=== PATIENT | female | born 1990 | race Caucasian/White ===

== ENCOUNTER → 2018-07-19 14:11 | Outpatient (CLI) | payer OTHER, SELFPAY ==
--- NOTE | 2018-07-19 14:14 | CT_ITS ---
STUDY: CT ABDOMEN AND PELVIS WITHOUT CONTRAST REASON FOR EXAM: Female, 28 years old. Microscopic hematuria flank pain for 7 months RADIATION DOSAGE (If Supplied By Facility): CTDIvol = ( 24.18 ) mGy, DLP = ( 1328.96 ) mGycm TECHNIQUE: Transaxial images were obtained from the dome of the diaphragm to the symphysis pubis without oral contrast, and without intravenous contrast. Sagittal and coronal images were reconstructed. Individualized dose optimization techniques were used for this CT. COMPARISON: None. FINDINGS: The visualized lung bases are unremarkable. The visualized portions of the heart are within normal limits. Normal liver. Normal gallbladder and extrahepatic biliary system. Normal spleen. Normal pancreas. Normal bilateral adrenal glands. Normal right kidney. Normal left kidney. There is a small hiatal hernia. Normal small intestine. There is mild to moderate stool in the colon. The appendix is visualized and appears normal. Normal abdominal aorta. Normal inferior vena cava. Normal retroperitoneum. Normal urinary bladder. Normal visualized uterus. There is prominent subcutaneous fat. There is a broad disc bulge at L5-S1. There is degenerative change at the SI joints. CT/Abdomen/Pelvis without Cont IMPRESSION: No visualize renal ureteral bladder calculi. [id number] constipation. No evidence of appendicitis. Electronically Signed: Nayeli Allen MD at 16:10 EDT Tel , Service support ,
== END ==
PROVIDERS: Family Provider Family Medicine; PCP Family Medicine; Visit Provider Family Medicine
DX: R31.21 Asymptomatic microscopic hematuria (principal)
CPT/HCPCS: 74176

== ENCOUNTER 2018-12-23 07:00 | Outpatient (RCR) | payer OTHER, SELFPAY ==
[2018-11-30 12:18] VITALS: BMI 56.5
--- NOTE | 2018-12-05 08:10 | HP.PTEVAL_ITS ---
Patient's Visit Information AMARI CANNON is a 28 year old F referred to Physical Therapy by Daysi Quigley MD with a diagnosis of Lumbar disc bulge, low back pain. Date of Evaluation: 12/05/18 Physical Therapist: Cristobal Talley DPT - Visit Plan Frequency: 2x /Week Duration: 4 Weeks Plan: Start with L sided side glide, off set press ups, prone lying over pillows + IFC. Once symptoms have started to reduce add in neutral core stability exercises. - Subjective Findings: Pt. is here today for her initial evaluation with diagnosis of LBP and disc bulging. Pt. reports having increased pain since attempting to lift a fan blade aligner over the weekend and felt intense pain in her back. Pt. was unable to straighten up. Pt. was ahving pain down her R leg, but not today. Pt. reports having 6/10 pain on the right side of lumbar spine. Pt. denies N/T, but did have some feeling of her R LE wanting to give out on her earlier this week, non since. Pt. reports improved sleeping over the past two nights. 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 Pt. is hopeful to reduce her symptoms in order to get back to all recreational and work actitiies without limitations. - Pain Lumbar spine Pain Intensity (Out of 10): 6 Pain Intensity Range: 3, 8 - Objective POSTURE: Pt. has a lateral R shift with L shoulder correction. Pt. has normal shoulder heights. Pt. is not able to correct without increase in symptoms. PALAPTION: Pt. has increased tenderness aloing lumbar paraspinals. Pt. has increased pain with spring testing of L3-L5. Pt. has normal SI joint allignment. NEURO: Pt. has normal senstaion throughout BLEs. Pt. has 2+ bilateral DTR of LEs. ROM: LUMBAR SPINE: flexion min loss increase nW, ext min/mod loss increase NW, SB R nil loss NE, SB L min loss increase NE,rotation nil loss bilat NE. Pt. has normal hip ROM bilatearlly no increase in symptoms. Pt. has tight HS bilat and tight hip flexors bilat. MMT: Pt has normal BLE strength 5/5 throughout, except 4/5 hip abd. Pt. has poor core strength as well. GAIT: Pt has normal step length bilaterally Pt. has a R lateral hip with trunk correction. Pt. has increased pain with gait to 6/10. Pt. has minimal arm swing and minimal lateral trunk motion. STAIRS: normal no issues. - Special Tests L/S Slump test left side: Negative L/S Slump test right side: Negative L/S Left Straight Leg Raise: Negative L/S Right Straight Leg Raise: Negative Lumbar Standing: Flexion - Mechanical Response: No effect Lumbar Standing: Flexion - Symptoms During Testing: Increases Lumbar Standing: Flexion - Symptoms After Testing: No worse Lumbar Standing: Extension - Mechanical Response: No effect Lumbar Standing: Extension - Symptoms During Testing: Increases Lumbar Standing: Extension - Symptoms After Testing: No worse Lumbar Standing: Right Side Glides - Mechanical Response: No effect Lumbar Standing: Right Side [place] - Symptoms During Testing: Increases Lumbar Standing: Right Side [place] - Symptoms After Testing: Worse Lumbar Standing: Left Side [place] - Mechanical Response: Increases motion Lumbar Standing: Left Side [place] - Symptoms During Testing: Decreases Lumbar Standing: Left Side [place] - Symptoms After Testing: Better Lumbar Lying: Flexion - Mechanical Response: No effect Lumbar Lying: Flexion - Symptoms During Testing: Decreases Lumbar Lying: Flexion - Symptoms After Testing: No better Lumbar Lying: Extension - Mechanical Response: Increases motion Lumbar Lying: Extension - Symptoms During Testing: Decreases Lumbar Lying: Extension - Symptoms After Testing: No better Lumbar Static: Slouched Sit - Mechanical Response: No effect Lumbar Static: Slouched Sit - Symptoms During Testing: Decreases Lumbar Static: Slouched Sit - Symptoms After Testing: Better Lumbar Static: Sitting Erect - Mechanical Response: No effect Lumbar Static: Sitting Erect - Symptoms During Testing: Increases Lumbar Static: Sitting Erect - Symptoms After Testing: No worse Lumbar Static:Lying Prone in Extension - Mechanical Response: No effect Lumbar Static: Lying Prone in Extension - Sx During Testing: Decreases Lumbar Static: Lying Prone in Extension - Sx After Testing: No better Comments:: improved over 2 pillows - Goals Goal 1:: Pt. to be I with HEP. Goal Time Frame: 4-6 Weeks Goal 2:: Pt. to have increased lumbar ROM by 25% in all directions without increase in symptoms. Goal Time Frame: 4-6 Weeks Goal 3:: Pt. to tolerate sitting without increase in symptoms. Goal Time Frame: 4-6 Weeks Goal 4:: Pt. to sleep throughout the night without increase in symptoms. Goal Time Frame: 4-6 Weeks Goal 5:: Pt. to complete all work and recreational activities with 0-1/10 pain in lumbar spine Goal Time Frame: 4-6 Weeks Goal 6:: Pt. to have increased core strength to fair reducing stress applied to lumbar spine with all functional activities. Goal Time Frame: 4-6 Weeks - Rehabilitation Potential Physical Therapy Diagnosis: Pt. has signs and symptoms consistent with low back pain with out radiculopathy. Pt. appears to have a R lateral shift with trunk correction. Pt. has limited ROM throughout her lumbar spine. Pt. would benefit from PT to reduce symptoms, restore lumbar motion and progress to core stability. Rehabilitation Potential: Excellent - Anticipated Interventions Patient/Client Instruction: Educate patient on: Condition, Plan of Care, Risk Factors, Benefits of Fitness Program For the Purpose of:: To improve decision making, To facilitate caregiver knowledge, To improve self management, To prevent re-injury, To improve ability to perform tasks related to life management, To improve tolerance to ADL's Therapeutic Exercise to Include: Strength training, Power training, Endurance training, Body mechanics, Postural training, Flexibilty training, Passive ROM, Active ROM, Dynamic Lumbar Stabilization, Araseli Exercises For the Purpose of:: To decrease pain, To decrease swelling/inflammation, To increase ROM, To improve nutrient delivery to tissue, To increase oxygenation perfusion, To improve muscle performance and motor function, To improve health of tissue, To increase flexibility/ROM, To improve endurance Manual Therapy Techniques to Include: Trigger point massage, Mobilization, Passive ROM, Functional dry needling, Soft tissue mobilization For the Purpose of:: To decrease pain, To decrease swelling/inflammation, To increase ROM, To improve nutrient delivery to tissue, To increase oxygenation perfusion, To improve muscle performance and motor function IF ES: Yes Cryotherapy (ice pack, ice massage): Yes Ultrasound (thermal/non thermal): Yes Pelvic traction supine: Yes For the Purpose of:: To decrease pain, To decrease swelling/inflammation, To increase ROM, To improve nutrient delivery to tissue, To improve health of tissue, To decrease soft tissue restriction Thank you for the opportunity to evaluate your patient. For Medicare and Medicare HMO plans, please review the plan of care and approve it. It will need to be FAXED BACK to us at [phone] for Medicare purposes. For Medicare only, by signing this I certify the plan of care. Please let me know if there are questions or concerns regarding this plan of care. Physician Signature: Date:
--- NOTE | 2019-06-11 15:34 | HP.PT.NRP ---
HP - Discharge Summary (1) - Patient Information MAARI CANNON was seen in my office for initial evaluation on 12/05/18. The following Plan of Care was established for this patient: Initial Frequency: 2x /Week Initial Duration: 4 Weeks - Anticipated Interventions Patient/Client Instruction: Educate patient on: Condition, Plan of Care, Risk Factors, Benefits of Fitness Program For the Purpose of:: To improve decision making, To facilitate caregiver knowledge, To improve self management, To prevent re-injury, To improve ability to perform tasks related to life management, To improve tolerance to ADL's Therapeutic Exercise to Include: Strength training, Power training, Endurance training, Body mechanics, Postural training, Flexibilty training, Passive ROM, Active ROM, Dynamic Lumbar Stabilization, Araseli Exercises For the Purpose of:: To decrease pain, To decrease swelling/inflammation, To increase ROM, To improve nutrient delivery to tissue, To increase oxygenation perfusion, To improve muscle performance and motor function, To improve health of tissue, To increase flexibility/ROM, To improve endurance Manual Therapy Techniques to Include: Trigger point massage, Mobilization, Passive ROM, Functional dry needling, Soft tissue mobilization For the Purpose of:: To decrease pain, To decrease swelling/inflammation, To increase ROM, To improve nutrient delivery to tissue, To increase oxygenation perfusion, To improve muscle performance and motor function IF ES: Yes Cryotherapy (ice pack, ice massage): Yes Ultrasound (thermal/non thermal): Yes Pelvic traction supine: Yes For the Purpose of:: To decrease pain, To decrease swelling/inflammation, To increase ROM, To improve nutrient delivery to tissue, To improve health of tissue, To decrease soft tissue restriction This patient was last seen in our office 12/23/18. Pertinent comments regarding their Physical therapy will appear below: Pt. has not been seen in several months and will be DC from PT at this point intime. At this point I will be discontinuing this patient from physical therapy. I would be happy to see this patient again in the future if found appropriate by the physician. Thank you! Cristobal Talley, ELEUTERIOT
== END 2018-12-23 19:00 | disposition home or self-care (01) ==
LOC: PT 07:00
PROVIDERS: Family Provider Family Medicine; PCP Family Medicine; Referring Provider Family Medicine; Visit Provider Family Medicine
DX: M51.26 Other intervertebral disc displacement, lumbar region (principal)
CPT/HCPCS: 97014; 97110; 97161; G0283

== ENCOUNTER → 2019-10-15 13:56 | Outpatient (CLI) | payer OTHER, SELFPAY ==
[2019-10-15 09:00] VITALS: BMI 56.5
[2019-10-17 17:01] LABS: HPV APTIMA, High Risk Negative (Negative)
== END ==
PROVIDERS: Family Provider Family Medicine; PCP Family Medicine; Visit Provider Obstetrics & Gynecology
DX: Z12.4 Encounter for screening for malignant neoplasm of cervix (principal)
CPT/HCPCS: 87624; 88175; G0145

== ENCOUNTER 2019-11-03 17:45 | Outpatient (RCR) | payer OTHER, SELFPAY ==
[2018-11-30 12:18] VITALS: BMI 56.5
--- NOTE | 2019-01-29 18:30 | MASS.EVAL ---
Massage Therapy Evaluation: DATE OF INITIAL EVALUATION: 12-18-2018 Referring Physician: Dr. 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 She was seen for a massotherapy evaluation with a diagnosis of shoulder and neck pain. She presents today with LBP. On a pain scale of 1-10 she states her pain in a 7 today. She explains that she often gets headaches. As many as 3-4 a week. Some with visual disturbances. She does not list any medications . She states that her health is very good with no limits in daily activities. OBJECTIVE: Upon examination and palpation I found she had point tenderness throughout her suboccipitals. The muscles in her head, neck, and shoulders were very tight. Her scalp was rigid as well as her masseter muscles bilaterally. Her scalenes and low trap were particularly tight. The low back musculature was very tight. Kesha's?s first treatment consisted of MFR, muscle stripping, PNMT to her cervicals as well as heat pack to loosen muscles. ASSESSMENT: Using various techniques I was able to achieve moderate releases overall. The patient tolerated moderate pressure well and relaxed easily PLAN: I plan to see this patient on an as-needed basis for a total of 10 visits in the year 2019. Maria Guadalupe Sigala LMT
--- NOTE | 2019-11-03 18:26 | DS.PCM_ITS ---
Massage Therapy Discharge Summary: Discharge Date: 11/03/2019 Kesha was seen for a massotherapy evaluation on 12/18/2018 with the diagnosis of neck, shoulder, and low back pain. She was treated with ten sessions of massage therapy consisting of moderate to deep pressure soft tissue techniques, myofascial release and trigger point compression to her cervical, thoracic, lower back, upper extremities and hips. Kesha responded well to the therapy by reporting decreased tension and pain throughout her head, neck, shoulders, lower back and hips. Her goals for therapy were met throughout the treatment sessions. At this time this patient is being discharged from our care at [facility] facility.
== END 2019-11-03 19:00 | disposition home or self-care (01) ==
LOC: MASS 17:45
PROVIDERS: Family Provider Family Medicine; PCP Family Medicine; Visit Provider Family Medicine
DX: M54.2 Cervicalgia (principal); M25.519 Pain in unspecified shoulder
CPT/HCPCS: 97124

== ENCOUNTER 2020-06-30 16:45 | Outpatient (RCR) | payer OTHER, SELFPAY ==
[2019-10-22 17:33] VITALS: BMI 56.5
--- NOTE | 2019-12-02 15:20 | MASS.EVAL_ITS ---
Massage Therapy Evaluation: Initial Evaluation Date: 12/01/2019 SUBJECTIVE: Kesha is a 29 year old female who was referred to the [facility] for a massotherapy evaluation by Dr. Quigley with the diagnosis of headaches. She presents today with the symptoms of pain, stiffness and tension in the neck with headaches, mid back and low back. Kesha reports having a past medical history of chronic pain and tension in her neck, shoulders and low back related to her posture and stress. OBJECTIVE: Upon observation Kesha has some posture issues with her head and shoulders forward from the neutral position in sitting and standing. After examination and palpation, I found Kesha to have high muscle tension with tenderness and myofascial restrictions in her sub occipitals, levator scapulae, trapezius, rhomboids, scalenes, and thoracic paraspinals. The first treatment consisted of a one hour massage to her upper body with myofascial release, muscle stripping, trigger point compression techniques, and cervical manual traction. ASSESSMENT: I feel that Kesha is a good candidate for massotherapy at this time. She had a favorable response to the first treatment with reduction in her muscle aches, pain and tension. She also had improvement in her cervical flexibility and low back flexibility. PLAN: The plan of care was reviewed with the patient. The patient is to be seen on an as needed basis for a total of ten sessions with the recommendation of once every month for a one hour treatment.
--- NOTE | 2020-10-13 17:01 | MASS.DISCH ---
Massage Therapy Discharge Summary: Discharge Date: 10/13/2020 Kesha was seen for a massotherapy evaluation on 12/01/2019 with the diagnosis of headaches. She was treated with seven sessions of massage therapy consisting of deep pressure soft tissue techniques, myofascial release and trigger point compression to her cervical, thoracic, lower back and hips. Kesha responded well to the therapy by reporting decreased tension and pain throughout her neck, shoulders, lower back and hips. Her goals for therapy were met throughout the treatment sessions. At this time this patient is being discharged from our care at [facility] facility.
== END 2020-06-30 19:00 | disposition home or self-care (01) ==
LOC: MASS 16:45
PROVIDERS: PCP Family Medicine; Referring Provider Family Medicine; Visit Provider Family Medicine
DX: R51 Headache (principal)
CPT/HCPCS: 97124

== ENCOUNTER 2020-07-11 08:28 | Emergency (ER) | payer OTHER, SELFPAY ==
[2020-07-10 09:00] VITALS: BMI 56.5
[2020-07-11 08:29] VITALS: BP 175/90; PULSE 97; RESP 16; TEMP 36.2; BMI 54.7
[2020-07-11 08:31] VITALS: BP 175/90; PULSE 97; RESP 16; TEMP 36.2
--- NOTE | 2020-07-11 08:47 | ED.VISSUMM ---
- ER Visit Summary Date of Service: 07/11/20 Chief Complaint: Facial abscess History of Present Illness: The patient is a 30 F who presents with an abscess to her lower jaw that has been getting worse over the past 4 days. Patient went to urgent care yesterday and was started on antibiotics and instructed to use warm compresses. Patient states she felt the area open yesterday when she was using warm compresses. Patient noted some purulent and bloody drainage from the area. Patient returned to the urgent care again today for reevaluation and was referred to the emergency department for wound cultures. Patient denies any fevers or chills. Patient denies any sore throat. Patient denies any difficulty swallowing or difficulty talking. Physical Examination: Vital signs are stable. Patient is afebrile. Patient is in no acute distress. Oral mucosa is pink and moist. Skin is warm and dry. There is an abscess over the left lower jaw. There is purulent drainage noted. There is induration and tenderness. There is some surrounding erythema. There is no fluctuance noted. There is no sublingual erythema or warmth. There is no evidence of Wil angina. Neck is supple. Trachea is midline. There is no JVD. There is some mild anterior cervical lymphadenopathy. Emergency Department Course and Treatment: Wound cultures were obtained. Since the abscess is already open and draining, I do not feel further incision and drainage is necessary at this time. I was able to express some purulent drainage from the wound. There is no further fluctuance. Patient was instructed to continue her antibiotics as prescribed. Patient was instructed to continue warm compresses. Patient was instructed to follow-up with her primary care physician in 5 to 7 days. Patient understood and was agreeable with the plan. All questions were answered. Disposition: Discharge home Impression: Facial abscess This note was generated with [employer] dictation software. It may contain incorrect words, spelling, and punctuation that were not noted in review of the chart prior to signing ED Disposition - Plan for ED Patient: Disposition: Home or Assisted Living Diagnosis: Facial abscess Instructions: ED Abscess Antibiotic Treatment Only Referrals: Daysi Quigley MD [Primary Care Provider] - 3-5 Days
[2020-07-11 08:52] VITALS: RESP 18; O2SAT 98
== END 2020-07-11 09:07 | disposition home or self-care (01) ==
LOC: ED 09:02
PROVIDERS: Emergency Provider Emergency Medicine; PCP Family Medicine
DX: L02.01 Cutaneous abscess of face (principal); F41.9 Anxiety disorder, unspecified; Z79.899 Other long term (current) drug therapy
CPT/HCPCS: 87070; 87077; 87186; 87205; 94760; 99282

== ENCOUNTER → 2021-01-05 08:21 | Outpatient (CLI) | payer SELFPAY ==
--- NOTE | 2021-01-05 08:33 | RAD_ITS ---
STUDY: X-RAY - ESOPHAGUS (BARIUM SWALLOW) WITH FLUOROSCOPY REASON FOR EXAM: Female, 30 years old. DYSPHAGIA TECHNIQUE: 18 view(s) of the esophagus were obtained following swallowing of barium. FLUOROSCOPY TIME (if supplied): (0:30) minutes/seconds COMPARISON: None. FINDINGS: There is no demonstrated esophageal foreign body. There is no demonstrated stricture or mucosal abnormality. Normal gastroesophageal junction, without a demonstrated hiatal hernia. The patient ingested a 12 mm tablet of barium without any difficulty. Normal visualized aortic arch and descending thoracic aorta. Normal visualized pulmonary parenchyma. Normal visualized osseous structures of the thorax. RAD/Esophagus Single Contrast IMPRESSION: Normal plain film x-ray examination (barium swallow) of the esophagus. Electronically Signed: Micheal Law MD at 10:39 EST , Service support ,
== END ==
PROVIDERS: PCP Family Medicine; Referring Provider Internal Medicine Gastroenterology; Visit Provider Internal Medicine Gastroenterology
DX: K21.9 Gastro-esophageal reflux disease without esophagitis (principal); R13.10 Dysphagia, unspecified
CPT/HCPCS: 74220

== ENCOUNTER → 2021-01-28 16:03 | Outpatient (CLI) | payer MEDICARE, SELFPAY | PROVIDERS: PCP Family Medicine; Referring Provider Internal Medicine Gastroenterology; Visit Provider Internal Medicine Gastroenterology | DX: Z11.59 Encounter for screening for other viral diseases (principal) | CPT/HCPCS: 87635; C9803; U0002 ==

== ENCOUNTER 2021-02-09 13:58 | Outpatient (RCR) | payer MEDICARE, SELFPAY | END 2021-04-12 23:59 | LOC: IMMUN 13:58 | PROVIDERS: PCP Family Medicine; Visit Provider Family Medicine | DX: Z23 Encounter for immunization (principal) | CPT/HCPCS: 0001A; 0002A; 91300 ==